=== PATIENT | female | born 1990 | race American Indian/Alaskan Native ===

== ENCOUNTER 2021-12-27 13:45 | Emergency (ER) | payer SELFPAY ==
--- NOTE | 2021-12-27 15:59 | Emergency Department Report ---
ED General Adult HPI - General Chief complaint: Dizziness Stated complaint: FEELING LIGHTHEAD/DIZZY Time Seen by Provider: 12/27/21 15:54 Source: patient, family Mode of arrival: Ambulatory Limitations: No Limitations - History of Present Illness Initial comments: 31-year-old morbid obese -[place] female presents to the emergency room for 3-day history of lightheadedness and dizziness. Patient states it is worse with walking and moving her head. She admits to a little nausea but no vomiting. States her last menstrual period was 2 weeks ago. She denies any headache no runny nose no nasal congestion no chest pain or shortness of breath. She states she has never had this before. States that she drinks about a half a gallon of water daily. She has a history of herpes and is treated with Valtrex. States that she received a ride here from a family member. She does not have a primary care provider but is followed by Dr. Merritt [employer]. Onset/Timin -: days(s) Severity scale (0 -10): 0 Associated Symptoms: denies other symptoms, nausea/vomiting (No vomiting slight nausea). denies: chest pain, cough, diaphoresis, fever/chills, headaches, loss of appetite, rash, seizure, shortness of breath, syncope, weakness Treatments Prior to Arrival: none - Related Data Previous Rx's Medication Instructions Recorded Last Taken Type Meclizine [Antivert] 25 mg PO TID PRN #12 tab 12/27/21 Unknown Rx Allergies Allergy/AdvReac Type Severity Reaction Status Date / Time azithromycin Allergy Anaphylaxis Verified 12/27/21 14:01 shellfish derived Allergy Anaphylaxis Verified 12/27/21 14:01 ED Review of Systems ROS: Stated complaint: FEELING LIGHTHEAD/DIZZY Other details as noted in HPI Comment: All other systems reviewed and negative ED Past Medical Hx - Medications Home Medications: Home Medications Medication Instructions Recorded Confirmed Last Taken Type Meclizine [Antivert] 25 mg PO TID PRN #12 tab 12/27/21 Unknown Rx ED Physical Exam - General Limitations: No Limitations General appearance: alert, in no apparent distress - Head Head exam: Present: atraumatic, normocephalic - Eye Eye exam: Present: normal appearance - ENT ENT exam: Present: mucous membranes moist - Neck Neck exam: Present: normal inspection - Respiratory Respiratory exam: Present: normal lung sounds bilaterally. Absent: respiratory distress - Cardiovascular Cardiovascular Exam: Present: regular rate, normal rhythm. Absent: systolic murmur, diastolic murmur, rubs, gallop - GI/Abdominal GI/Abdominal exam: Present: soft, normal bowel sounds - Extremities Exam Extremities exam: Present: normal inspection - Back Exam Back exam: Present: normal inspection - Neurological Exam Neurological exam: Present: alert, oriented X3 - Expanded Neurological Exam Expanded Cranial nerves: EOM's Intact: Normal, Gag Reflex: Normal, Tongue Deviation: Normal, Nystagmus: Normal, Facial Sensation: Normal, Facial Palsy with Forehead Movement: Normal, Facial Palsy without Forehead Movement: Normal Cerebellar function: Finger to Nose: Normal, Heel to Syed: Normal, Romberg: Normal Upper motor neuron: Antony Neglect: Normal, Pronator Drift: Normal, Sensory Extinction: Normal Sensory exam: Upper Extremity Light Touch: Normal, Upper Extremity Pin Prick: Normal, Upper Extremity Temperature: Normal, UE 2 Point Discrimination: Normal, Lower Extremity Light Touch: Normal, Lower Extremity Pin Prick: Normal, Lower Extremity Temperature: Normal, LE 2 Point Discrimination: Normal Motor strength exam: RUE: 5, LUE: 5, RLE: 5, LLE: 5 Best Eye Response (Dobbins): (4) open spontaneously Best Motor Response (Dobbins): (6) obeys commands Best Verbal Response (Micky): (5) oriented Micky Total: 15 - Psychiatric Psychiatric exam: Present: normal affect, normal mood - Skin Skin exam: Present: warm, dry, intact, normal color. Absent: rash ED Course Vital Signs 12/27/21 12/27/21 13:57 17:24 Temperature 98.4 F 98.8 F Pulse Rate 64 73 Respiratory 18 17 Rate Blood Pressure 111/67 114/75 [Right] O2 Sat by Pulse 100 100 Oximetry ED Medical Decision Making - Lab Data Result diagrams: 12/27/21 16:03 12/27/21 16:03 - Medical Decision Making 31-year-old morbid obese -[place] female presents to the emergency room for 3-day history of lightheadedness and dizziness. Patient states it is worse with walking and moving her head. She admits to a little nausea but no vomiting. States her last menstrual period was 2 weeks ago. She denies any headache no runny nose no nasal congestion no chest pain or shortness of breath. She states she has never had this before. States that she drinks about a half a gallon of water daily. She has a history of herpes and is treated with Valtrex. States that she received a ride here from a family member. She does not have a primary care provider but is followed by Dr. Merritt [employer]. Patient vital signs are stable. Neuro exam was within normal limits. I will check a CBC CMP and hCG. If those are stable patient will be discharged to follow-up with a primary care provider. Critical care attestation.: If time is entered above; I have spent that time in minutes in the direct care of this critically ill patient, excluding procedure time. ED Disposition Clinical Impression: Dizziness, nonspecific Disposition: 01 HOME / SELF CARE / HOMELESS Is pt being admited?: No Does the pt Need Aspirin: No Condition: Stable Instructions: Dizziness, [id number] Additional Instructions: All labs are within normal limits vital signs are stable. I recommended she take meclizine and follow-up with a primary care provider. Prescriptions: Meclizine [Antivert] 25 mg PO TID PRN #12 tab PRN Reason: Vertigo Referrals: [facility] [Provider Group] - 3-5 Days Forms: Work/School Release Form(ED) Time of Disposition: 17:45
[2021-12-27 16:35] LABS: Basophils % (Auto) 0.6 % (0.0-1.8); Eosinophils # (Auto) 0.1 K/mm3 (0.0-0.4); Eosinophils % (Auto) 1.1 % (0.0-4.3); Hematocrit 39.6 % (30.3-42.9); Hemoglobin 13.3 gm/dl (10.1-14.3); Lymphocytes # (Auto) 1.9 K/mm3 (1.2-5.4); Lymphocytes % (Auto) 28.9 % (13.4-35.0); Mean Corpuscular HGB Conc 34 % (30-34); Mean Corpuscular Volume 84 fl (79-97); Monocytes # (Auto) 0.4 K/mm3 (0.0-0.8); Monocytes % (Auto) 6.2 % (0.0-7.3); Platelet Count 279 K/mm3 (140-440); Red Blood Count 4.72 M/mm3 (3.65-5.03); Red Cell Distribution Width 14.1 % (13.2-15.2)
[2021-12-27 16:46] LABS: Alanine Aminotransferase 20 units/L (7-56); BUN/Creatinine Ratio 20; Blood Urea Nitrogen 12 mg/dL (7-17); Hemolysis Index 9
[2021-12-27 17:26] VITALS: BP 114/75
== END 2021-12-27 18:14 | disposition home or self-care (01) ==
LOC: ED 13:45
DX: R42 Dizziness and giddiness (principal); Z88.1 Allergy status to other antibiotic agents; Z91.013 Allergy to seafood; Z79.899 Other long term (current) drug therapy
CPT/HCPCS: 36415; 80053; 84702; 85025; 99283